=== PATIENT | female | born 1995 | race Caucasian/White ===

== ENCOUNTER 2021-04-05 16:38 | Day surgery (SDC) | payer SELFPAY ==
[2021-04-05] MEDS ORDERED: hydrALAZINE 20 MG/ML VIAL SLOW IVP PRN (17:37)
[2021-04-05 18:11] LABS: Bilirubin Neg (Negative); Blood, Urine 10 (Negative); Clarity Clear (Clear); Glucose, Urine (Dipstick) Normal (Negative); Ketone, Urine Negative (Negative); Leukocyte Negative (Negative); Nitrite Negative (Negative); Protein, Urine (Dipstick) Negative (Neg-Trace); Specific Gravity, Urine 1.025 (1.002-1.036); Urobilinogen Normal mg/dL (Less than 2)
[2021-04-05 18:15] LABS: Urine Culture Reflex No No
[2021-04-05 18:19] LABS: Squamous Epithelial 0-3 HPF (0-3); Transitional Epithelial 0-3 HPF (None Seen)
[2021-04-05 18:20] LABS: Bacteria/HPF Rare-Few HPF (None Seen); RBC/HPF 0-3 HPF (0-3); WBC/HPF 0-3 HPF (0-3)
[2021-04-05 18:22] LABS: Amphetamine Detected (NotDetected); Barbiturates Screen Not Detected (NotDetected); Benzodiazepine Screen Not Detected (NotDetected); Cocaine Metabolite Screen Not Detected (NotDetected); Methadone Not Detected (NotDetected); Methamphetamine Detected (NotDetected); Opiate Screen Not Detected (NotDetected); Oxycodone Screen Not Detected (NotDetected); Phencyclidine (PCP) Not Detected (NotDetected); THC/Cannabinoid Screen Not Detected (NotDetected); Tricyclic Screen Not Detected (NotDetected)
[2021-04-05 18:27] LABS: Fetal Membranes Rupture No Membranes Rupture (No Rupture)
[2021-04-05] MEDS ORDERED: Acetaminophen 500 MG TAB PO SCH (19:15)
[2021-04-05 19:43] LABS: Hemoglobin 10.4 g/dL (12.0-15.5); Mean Corpuscular HGB CONC 29.7 g/dL (32.0-36.0); Mean Corpuscular Hemoglobin 25.7 pg (27.0-33.0); Mean Corpuscular Volume 86.4 fl (81.6-98.3); Mean Platelet Volume 9.4 fl (7.4-10.4); Platelet Count 325 10x3/uL (150-450); RBC Distribution Width 14.1 % (11.5-14.5); Red Blood Cell (RBC) Count 4.05 10x6/uL (3.90-5.03); White Blood Cell (WBC) Count 10.5 10x3/uL (3.5-10.5)
[2021-04-05 20:14] LABS: Syphilis Antibody Nonreactive (Nonreactive); Syphilis Antibody Index 0.06 S/CO (<1.00 Non-Reactive)
[2021-04-05 20:15] LABS: Hep B Surf Ag Non-Reactive S/CO (NonReactive)
[2021-04-05 20:26] LABS: HBSAg Index 0.17 S/CO (0-0.99)
[2021-04-05 20:30] LABS: HIV (1/2) Antibody/Antigen Non-Reactive (NonReactive)
[2021-04-06 14:32] LABS: Hep C IgG Ab NonReactive (NonReactive); Hep C Index 0.08 S/CO (0-0.79)
== END 2021-04-05 20:40 | disposition home or self-care (01) ==
LOC: CSHLD/OP 16:38
PROVIDERS: ATTEND Student in an Organized Health Care Education/Training Program
DX: O99.891 Other specified diseases and conditions complicating pregnancy (principal); M54.50 Low back pain, unspecified; R10.2 Pelvic and perineal pain; R32 Unspecified urinary incontinence; R35.0 Frequency of micturition; R39.15 Urgency of urination; O99.323 Drug use complicating pregnancy, third trimester; F15.90 Other stimulant use, unspecified, uncomplicated; O99.333 Smoking (tobacco) complicating pregnancy, third trimester; F17.210 Nicotine dependence, cigarettes, uncomplicated; O09.33 Supervision of pregnancy with insufficient antenatal care, third trimester; Z3A.36 36 weeks gestation of pregnancy; Z88.6 Allergy status to analgesic agent; Z79.899 Other long term (current) drug therapy
CPT/HCPCS: 51701; 80306; 81001; 84112; 85027; 86762; 86780; 86803; 86850; 86900; 86901; 87081; 87340; 87389; 87480; 87491; 87510; 87591; 87660; 99285

== ENCOUNTER 2021-04-23 12:03 | Inpatient (IN) | payer OTHER ==
[2021-04-23 12:54] VITALS: BMI 33.3
[2021-04-23] MEDS ORDERED: hydrALAZINE 20 MG/ML VIAL SLOW IVP PRN ×2 (13:27→16:49)
[2021-04-23 14:31] LABS: Amphetamine Detected (NotDetected); Barbiturates Screen Not Detected (NotDetected); Benzodiazepine Screen Not Detected (NotDetected); Cocaine Metabolite Screen Not Detected (NotDetected); Methadone Not Detected (NotDetected); Methamphetamine Detected (NotDetected); Opiate Screen Not Detected (NotDetected); Oxycodone Screen Not Detected (NotDetected); Phencyclidine (PCP) Not Detected (NotDetected); THC/Cannabinoid Screen Not Detected (NotDetected); Tricyclic Screen Not Detected (NotDetected)
[2021-04-23 15:47] LABS: Bacteria/HPF None Seen HPF (None Seen); RBC/HPF None Seen HPF (0-3); Squamous Epithelial 0-3 HPF (0-3); WBC/HPF None Seen HPF (0-3)
[2021-04-23] MEDS ORDERED: Acetaminophen 500 MG TAB PO PRN (16:49)
[2021-04-23] MEDS ORDERED: Ondansetron PF 4 MG/2 ML Vial IVP PRN ×2 (16:49→18:15)
[2021-04-23] MEDS ORDERED: Misoprostol 200 MCG TAB PR PRN (16:49)
[2021-04-23] MEDS ORDERED: Promethazine HCl 25 MG/ML VIAL IM PRN ×2 (16:49→18:15)
[2021-04-23] MEDS ORDERED: Lidocaine 1% (PF) 30 ML VIAL SC PRN (16:49)
[2021-04-23] MEDS ORDERED: Methylergonovine 0.2 MG/ML VIAL IM PRN (16:49)
[2021-04-23] MEDS ORDERED: Carboprost 250 MCG/ML AMP IM PRN (16:49)
[2021-04-23] MEDS ORDERED: NS w/ Oxytocin 30 units 500 ML IV SCH ×2 (17:00)
[2021-04-23] MEDS ORDERED: Penicillin G Potassium 5 MILL.UNITS VIAL ONE (17:00)
[2021-04-23] MEDS ORDERED: Lactated Ringer's 1,000 ML IV SCH (17:00)
[2021-04-23] MEDS ORDERED: Penicillin G Potassium 5 MILL.UNITS in Sodium Chloride 0.9% 100 ML IVPB SCH (17:00)
[2021-04-23 17:21] LABS: Hemoglobin 10.8 g/dL (12.0-15.5); Mean Corpuscular HGB CONC 30.7 g/dL (32.0-36.0); Mean Corpuscular Hemoglobin 24.8 pg (27.0-33.0); Mean Corpuscular Volume 80.9 fl (81.6-98.3); Mean Platelet Volume 9.5 fl (7.4-10.4); Platelet Count 336 10x3/uL (150-450); RBC Distribution Width 15.3 % (11.5-14.5); Red Blood Cell (RBC) Count 4.35 10x6/uL (3.90-5.03); White Blood Cell (WBC) Count 9.8 10x3/uL (3.5-10.5)
[2021-04-23] MEDS ORDERED: Fentanyl 2 mcg/Bup 0.1% Cadd 100 ML ONE (17:32)
[2021-04-23 18:01] LABS: HIV (1/2) Antibody/Antigen Non-Reactive (NonReactive); HIV 1/2 INDEX 0.07 S/CO (<1.00); Hep B Surf Ag Non-Reactive S/CO (NonReactive); Syphilis Antibody Nonreactive (Nonreactive); Syphilis Antibody Index 0.06 S/CO (<1.00 Non-Reactive)
[2021-04-23] MEDS ORDERED: diphenhydrAMINE 50 MG/ML VIAL IVP PRN (18:15)
[2021-04-23] MEDS ORDERED: Fentanyl 2 mcg/Bupivacaine 0.1% Cassette 100 ML EPIDURAL SCH (18:15)
[2021-04-23] MEDS ORDERED: Lactated Ringer's 500 ML IV PRN (18:15)
[2021-04-23] MEDS ORDERED: ePHEDrine Sulfate 50 MG/10 ML VIAL SLOW IVP PRN (18:15)
[2021-04-23] MEDS ORDERED: Communication Order-Pharmacy FS SCH (18:15)
[2021-04-23] MEDS ORDERED: Acetaminophen 325 MG TAB PO PRN (18:15)
[2021-04-23] MEDS ORDERED: Naloxone HCl 0.4 mg/ml Vial IVP PRN ×2 (18:15)
[2021-04-23] MEDS ORDERED: Hydrocerin (Eucerin) Cream 120 gm Jar TOP PRN (18:15)
[2021-04-23] MEDS ORDERED: Penicillin G 2.5 MILL.units 2.5 MILL.UNITS in Premix Bag 1 BAG IVPB SCH ×2 (18:58→21:00)
[2021-04-24] MEDS ORDERED: Measles/Mumps/Rubella 10 MCG/0.5 ML VIAL SC ONE (00:07)
[2021-04-24] MEDS ORDERED: hydrALAZINE 20 MG/ML VIAL SLOW IVP PRN (00:07)
[2021-04-24] MEDS ORDERED: Preparation H Ointment 28 GM TUBE PR PRN (00:07)
[2021-04-24] MEDS ORDERED: Milk Of Magnesia 30 ML UDCUP PO PRN (00:07)
[2021-04-24] MEDS ORDERED: Benzocaine-Menthol 82.5 ML CAN TOP PRN (00:07)
[2021-04-24] MEDS ORDERED: Bisacodyl 10 MG SUPP PR PRN (00:07)
[2021-04-24] MEDS ORDERED: Boostrix 0.5 ML (Tdap) VIAL IM ONE (00:07)
[2021-04-24] MEDS: Acetaminophen 325 MG TAB PO PRN ×3 (06:06→18:19)
[2021-04-24] MEDS: Ferrous Sulfate 325 MG TAB PO SCH ×2 (07:33→18:18)
[2021-04-24] MEDS: Docusate 100 MG CAP PO SCH ×2 (09:19→21:26)
[2021-04-24] MEDS: Prenatal Vitamin 1 TAB PO SCH (09:19)
[2021-04-25] MEDS: Ferrous Sulfate 325 MG TAB PO SCH (07:12)
[2021-04-25] MEDS ORDERED: Bupivacaine 0.25% HCL 30 ML VIAL ONE (08:00)
[2021-04-25] MEDS ORDERED: Lidocaine 2% 10 ML INJ ONE (08:00)
[2021-04-25 08:48] VITALS: BP 133/99; TEMP 98
[2021-04-25] MEDS: Docusate 100 MG CAP PO SCH (08:50)
[2021-04-25] MEDS: Prenatal Vitamin 1 TAB PO SCH (08:50)
== END 2021-04-25 10:30 | disposition home or self-care (01) | DRG 806 ==
LOC: EEVIPCON 12:03 → CSHLD/OP 12:03 → CSHLD 19:05 → CSHPP 04-24 00:24
PROVIDERS: ADMIT Emergency Medicine; ATTEND Emergency Medicine
PROC: 10E0XZZ Delivery of Products of Conception, External Approach (ICD-10-PCS; principal; 2021-04-23)
PROC: 0HQ9XZZ Repair Perineum Skin, External Approach (ICD-10-PCS; 2021-04-23)
DX: O77.0 Labor and delivery complicated by meconium in amniotic fluid (principal); O99.324 Drug use complicating childbirth; Z37.0 Single live birth; O99.824 Streptococcus B carrier state complicating childbirth; Z3A.39 39 weeks gestation of pregnancy; F17.210 Nicotine dependence, cigarettes, uncomplicated; O99.334 Smoking (tobacco) complicating childbirth; F15.10 Other stimulant abuse, uncomplicated; F12.10 Cannabis abuse, uncomplicated; O70.0 First degree perineal laceration during delivery; Z79.899 Other long term (current) drug therapy; Z79.891 Long term (current) use of opiate analgesic; Z88.6 Allergy status to analgesic agent; Z28.89 Immunization not carried out for other reason
CPT/HCPCS: 51702; 76819; 80306; 81015; 85027; 86780; 86850; 86900; 86901; 87340; 87389; 88307; 99285; J2540; J2590; S0020

== ENCOUNTER 2021-05-07 16:39 | Inpatient (IN) | payer OTHER ==
[2021-05-07] MEDS ORDERED: Calcium Carbonate 500 MG ChewTAB PO PRN (16:48)
[2021-05-07] MEDS ORDERED: Ondansetron ODT 4 MG TAB PO PRN (16:48)
[2021-05-07] MEDS ORDERED: Senokot S 8.6-50 MG TAB PO PRN (16:48)
[2021-05-07 17:12] VITALS: BMI 29.2
[2021-05-07] MEDS: Lactated Ringer's 1,000 ML IV SCH (18:15)
[2021-05-07] MEDS: Clindamycin/D5W 900 MG in Premix Bag 1 BAG IVPB SCH (18:15)
[2021-05-07] MEDS: SODIUM CHLORIDE IVPB SCH (18:58)
[2021-05-07] MEDS: GENTAMICIN SULFATE IVPB SCH (18:58)
[2021-05-07] MEDS: ADMIXTURE FEE IVPB SCH (18:58)
[2021-05-07 19:17] LABS: ALT (SGPT) 25 U/L (8-55); AST (SGOT) 19 U/L (5-34); Alkaline Phosphatase 119 U/L (40-110); Anion Gap 17 mmol/L (10-20); BUN (Urea Nitrogen) 7 mg/dL (7.0-18.7); Bilirubin, Total 0.4 mg/dL (0.2-1.2); Calc. Creatinine Clearance 164 mL/min (70-130); Calcium 8.3 mg/dL (7.8-10.44); Carbon Dioxide 11 mmol/L (22-29); Chloride 115 mmol/L (98-107); Globulin 3.6 g/dL (2.4-3.5); Glucose 91 mg/dL (70-105); Potassium 5.2 mmol/L (3.5-5.1); Protein, Total 6.6 g/dL (6.0-8.3); Sodium 138 mmol/L (136-145)
[2021-05-07] MEDS: Ampicillin 2 GM in Sodium Chloride 0.9% 100 ML IVPB SCH (20:11)
[2021-05-07] MEDS: Acetaminophen 325 MG TAB PO PRN (20:23)
[2021-05-07 21:08] LABS: Amphetamine Detected (NotDetected); Barbiturates Screen Not Detected (NotDetected); Benzodiazepine Screen Not Detected (NotDetected); Cocaine Metabolite Screen Not Detected (NotDetected); Methadone Not Detected (NotDetected); Methamphetamine Detected (NotDetected); Opiate Screen Not Detected (NotDetected); Oxycodone Screen Not Detected (NotDetected); Phencyclidine (PCP) Not Detected (NotDetected); THC/Cannabinoid Screen Not Detected (NotDetected); Tricyclic Screen Not Detected (NotDetected)
[2021-05-08] MEDS: Clindamycin/D5W 900 MG in Premix Bag 1 BAG IVPB SCH ×3 (00:56→17:13)
[2021-05-08] MEDS: Ampicillin 2 GM in Sodium Chloride 0.9% 100 ML IVPB SCH ×4 (02:16→20:25)
[2021-05-08] MEDS: Acetaminophen 325 MG TAB PO PRN ×2 (05:03→18:12)
[2021-05-08 05:31] LABS: Hemoglobin 9.6 g/dL (12.0-15.5); Mean Corpuscular HGB CONC 31.2 g/dL (32.0-36.0); Mean Corpuscular Hemoglobin 24.6 pg (27.0-33.0); Mean Platelet Volume 8.4 fl (7.4-10.4); Platelet Count 428 10x3/uL (150-450); RBC Distribution Width 17.2 % (11.5-14.5); White Blood Cell (WBC) Count 20.2 10x3/uL (3.5-10.5)
[2021-05-08 05:39] LABS: ALT (SGPT) 19 U/L (8-55); AST (SGOT) 10 U/L (5-34); Alkaline Phosphatase 107 U/L (40-110); Anion Gap 14 mmol/L (10-20); BUN (Urea Nitrogen) 7 mg/dL (7.0-18.7); Bilirubin, Total 0.3 mg/dL (0.2-1.2); Calc. Creatinine Clearance 156 mL/min (70-130); Calcium 8.6 mg/dL (7.8-10.44); Carbon Dioxide 19 mmol/L (22-29); Chloride 110 mmol/L (98-107); Globulin 3.3 g/dL (2.4-3.5); Glucose 92 mg/dL (70-105); Potassium 3.7 mmol/L (3.5-5.1); Protein, Total 6.3 g/dL (6.0-8.3); Sodium 139 mmol/L (136-145)
[2021-05-08 06:04] LABS: MDiff Complete? YES
[2021-05-08 06:18] LABS: Band 4 % (5-11); Eosinophils 2 % (0-10); Lymphocytes 11 % (21-51); Monocytes 6 % (0-10); Neutrophil 77 % (42-75)
[2021-05-08] MEDS: Lactated Ringer's 1,000 ML IV SCH (14:58)
[2021-05-08] MEDS: SODIUM CHLORIDE IVPB SCH (18:12)
[2021-05-08] MEDS: GENTAMICIN SULFATE IVPB SCH (18:12)
[2021-05-08] MEDS: ADMIXTURE FEE IVPB SCH (18:12)
[2021-05-09] MEDS: Clindamycin/D5W 900 MG in Premix Bag 1 BAG IVPB SCH (00:58)
[2021-05-09] MEDS: Ampicillin 2 GM in Sodium Chloride 0.9% 100 ML IVPB SCH ×4 (02:26→20:16)
[2021-05-09] MEDS: Lactated Ringer's 1,000 ML IV SCH ×3 (04:35→17:18)
[2021-05-09 11:32] LABS: #Basophils 0.1 10x3/uL (0.0-0.2); #Eosinphils 0.3 10x3/uL (0.0-0.5); #Monocytes 0.3 10x3/uL (0.0-1.1); #Neutrophils 6.1 10x3/uL (1.5-8.4); %Basophils 0.6 % (0.0-2.0); %Eosinophils 3.4 % (0.0-6.0); %Lymphocytes 25.5 % (18.0-47.0); %Monocytes 3.7 % (0.0-10.0); Mean Corpuscular Hemoglobin 24.1 pg (27.0-33.0); Mean Corpuscular Volume 80.4 fl (81.6-98.3); Mean Platelet Volume 8.6 fl (7.4-10.4); Platelet Count 421 10x3/uL (150-450); RBC Distribution Width 16.8 % (11.5-14.5); Red Blood Cell (RBC) Count 3.73 10x6/uL (3.90-5.03); White Blood Cell (WBC) Count 9.2 10x3/uL (3.5-10.5)
[2021-05-10] MEDS: Ampicillin 2 GM in Sodium Chloride 0.9% 100 ML IVPB SCH ×2 (01:55→08:27)
[2021-05-10 05:50] LABS: Hemoglobin 9.4 g/dL (12.0-15.5); Mean Corpuscular HGB CONC 31.2 g/dL (32.0-36.0); Mean Corpuscular Hemoglobin 24.4 pg (27.0-33.0); Mean Corpuscular Volume 78.2 fl (81.6-98.3); Mean Platelet Volume 8.6 fl (7.4-10.4); RBC Distribution Width 17.2 % (11.5-14.5); Red Blood Cell (RBC) Count 3.85 10x6/uL (3.90-5.03); White Blood Cell (WBC) Count 9.6 10x3/uL (3.5-10.5)
[2021-05-10 05:52] LABS: Platelet Count 501 10x3/uL (150-450)
[2021-05-10] MEDS: Lactated Ringer's 1,000 ML IV SCH ×2 (07:15→08:28)
[2021-05-10 10:57] VITALS: BP 111/65; TEMP 99
== END 2021-05-10 12:10 | disposition home or self-care (01) | DRG 776 ==
LOC: CSHANTE 16:39
PROVIDERS: ADMIT Family Medicine; ATTEND Family Medicine
DX: O85 Puerperal sepsis (principal); U07.1 COVID-19; O98.53 Other viral diseases complicating the puerperium; O86.12 Endometritis following delivery; B95.0 Streptococcus, group A, as the cause of diseases classified elsewhere; O99.825 Streptococcus B carrier state complicating the puerperium; F15.10 Other stimulant abuse, uncomplicated; Z88.8 Allergy status to other drugs, medicaments and biological substances; Z79.899 Other long term (current) drug therapy
CPT/HCPCS: 36415; 80053; 80306; 85025; 85027; J0290; J1580; J3490; J7120